=== PATIENT | female | born 1960 ===

== ENCOUNTER 2025-04-15 13:22 | Outpatient (AMB) | payer OTHER, SELFPAY ==
--- NOTE | 2025-04-15 13:24 | MHC.OFFVIS ---
Intake Visit Reasons: 6m migraine Allergies Penicillins Allergy (Unknown, Verified 04/15/25 13:28) Unknown Sulfa (Sulfonamide Antibiotics) Allergy (Unknown, Verified 04/15/25 13:28) Unknown sulfamethoxazole (From Bactrim) Allergy (Unknown, Verified 04/15/25 13:28) Unknown trimethoprim (From Bactrim) Allergy (Unknown, Verified 04/15/25 13:28) Unknown Medication List - Last Reconciled 04/15/25 by Brenda Steinberg CNP albuterol sulfate 90 mcg/actuation (Ventolin HFA) inhalation calcium carbonate-vitamin D3 600 mg-20 mcg (800 unit) tabs PO cholecalciferol (vitamin D3) 25 mcg PO DAILY gabapentin 100 mg PO TID hydroxychloroquine 200 mg PO DAILY ondansetron HCl mg PO rizatriptan take 1 tab at onset of headache; if no relief may repeat 1 tab after at least 4 hrs; max = 2 tabs/24 hr PO 30 days sumatriptan succinate mg subcut HPI Comments Details: She was doing okay. Migraines were stable, happening about 3x/month. Triggers include?alcohol, some barbecue sauce, sulfa, and stress. Rizatriptan as needed helps most of the time. If no relief with rizatriptan, will use sumatriptan injection which helps. Sleep was okay. Stress was okay. She started smoking cigarettes about 4-6/day after quitting for about 6 years. She was also smoking marijuana daily to help with pain. 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 Pain in joints in wrist and fingers. Gets vomiting, photophobia and sonophobia if not treated with Excedrin, Zomig or Sumatriptan inj. Tension type headaches relieved by Flexeril. Stopped propranolol.?Diagnosed as Lupus and immune compromised treated by Dr. Simon. She has a history of migraines since the 1980s but had been under control. She describes a throbbing bifrontal pain with nausea, vomiting, photophobia and sonophobia. She has chronic pain from FM and joint disease from Lupus. She has chronic pain syndrome related to back pain and shoulder pain, tailbone pain and hip pain . [facility] Medical History (Updated 04/15/25 @ 13:30 by Brenda Steinberg CNP) History of substance use disorder Diverticulitis Shingles Endometriosis Chronic pain syndrome Migraine Lumbar radiculopathy Fibromyalgia Lupus (systemic lupus erythematosus) Carpal tunnel syndrome Surgical History (Updated 04/15/25 @ 13:30 by Brenda Steinberg CNP) S/P carpal tunnel release Review of Systems Const Denies chills, Denies daytime sleepiness, Denies difficulty sleeping, Denies fatigue, Denies fever(s), Denies frequent falls, Reports headache(s), Denies increased appetite, Denies poor appetite, Denies snoring, Denies weakness, Denies weight gain and Denies weight loss Eyes Denies loss of vision ENT Denies vertigo, Denies dizziness, Reports headache(s) and Reports neck pain Card Denies chest pain at rest, Denies chest pain with activity, Denies syncope, Denies leg edema, Denies palpitations, Denies dyspnea and Denies dyspnea on exertion Resp Denies cough, Denies dyspnea, Denies dyspnea on exertion and Denies snoring GI Denies abdominal pain, Denies constipation, Denies heartburn, Denies diarrhea and Denies nausea Denies urinary frequency, Denies urinary incontinence and Denies urinary urgency Musc Denies abnormal gait, Reports back pain, Reports myalgias, Reports arthralgias, Reports neck pain, Denies numbness and Denies tingling Neuro Denies abnormal gait, Denies vertigo, Denies dizziness, Denies syncope, Denies frequent falls, Reports headache(s), Denies lack of coordination, Denies loss of vision, Denies memory loss, Denies numbness, Denies Other visual disturbances, Denies restless legs, Denies seizure-like activity, Denies tingling, Denies paresthesias, Denies tremor(s) and Denies weakness Psych Denies anxiety, Denies depression, Denies auditory hallucinations, Denies memory loss and Denies visual hallucinations Endo Denies fatigue and Denies palpitations Physical Exam Const Other: General Appearance:? normal, in no acute distress. Heart:? S1, S2 normal, no murmurs. Lungs:? clear anteriorly and posteriorly. Musculoskeletal:? normal. Extremities:? no edema. Psych:? alert, oriented, cognitive function intact, cooperative with exam. Neuro Other: Abnormal Neurological Findings:?none.? Mental Status: alert and oriented X 3. Normal attention, orientation, memory, and affect. Cranial Nerves: Pupils are equal, round, and reactive to light. External ocular muscles are intact. Visual stevens are full, no ptosis. Face is symmetrical, no facial weakness or droop. Facial sensations are normal. Tongue protrudes in midline. Palate elevates symmetrically. Shoulder shrugging is normal Motor Examination: Normal muscle tone, bulk and strength. No atrophy or fasciculations. No drift of the extended upper extremities. DTR 2+. Plantars are flexor. Sensory Exam: Normal light touch, temperature, pinprick, vibration, and joint-position sensations. Rhomberg sign is absent. Coordination: No ataxia. No titubation. Gait Exam: Within normal limits. Cerebellar Signs: [id number] is okay. Extrapyramidal System: No tremor, rigidity with normal facial expressions. No bradykinesia. No bradyphrenia. Normal arm swing and posture. No propulsion or retropulsion. Speech: Normal. Results Reviewed Results Reviewed: CT brain 08/23/13 WNL NCV/EMG UE 12/28/17 Normal motor and sensory nerve conduction velocities in the upper extremities. Normal EMG in the left C5-T1 innervated muscles. Assessment & Plan Assessment & Plan (1) Migraine: Code(s): G43.909 - Migraine, unspecified, not intractable, without status migrainosus Category: Medical Qualifiers: Migraine type: unspecified Status migrainosus presence: without status migrainosus Intractability: not intractable Qualified Code(s): G43.909 - Migraine, unspecified, not intractable, without status migrainosus Plan: Continue rizatriptan 10mg 1 tablet as needed for migraine. Continue sumatriptan auto-injector 6mg/0.5mL 0.5mL subcutaneous as needed for migraine #4 for 30 days. Continue ondansetron 4mg 1 tablet as needed for nausea/vomiting #10 for 30 days. Follow up in 6 months or sooner as needed. (2) Fibromyalgia: Code(s): M79.7 - Fibromyalgia Category: Medical Plan Meds tried: topiramate, propranolol Medications: New rizatriptan take 1 tab at onset of headache; if no relief may repeat 1 tab after at least 4 hrs; max = 2 tabs/24 hr PO 10 tabs 5RF 30 days Coding Level of Care Code Est Pt Level 4 (92454) Diagnoses Migraine without status migrainosus, not intractable, unspecified migraine type G43.909 Migraine type: unspecified Status migrainosus presence: without status migrainosus Intractability: not intractable Fibromyalgia M79.7
--- OUTSIDE RECORDS SUMMARY | 2025-04-15 19:21 | XMS_ITS | Clinical Summary ---
Author Organization [address] [facility] Address [address] [place], [place] [address] [address] Phone Care Team Providers Care Test Clerk Name Role Phone Tyrell Ware MD Primary Care Pr ovider Allergies Active Allergy Reactions Criticality Noted Date Comments Acetaminophen GI intolerance Medium 07/28/2017 Milk GI intolerance 06/06/2020 Milk/ cheese- Gastritis Nsaids (Non-Steroidal Anti-Inflammatory Drug) Other 08/21/2009 Stomach Pain Penicillins Itching 08/21/2009 Soy Rash 06/06/2020 Rash/ pimples Stevioside Itching 06/06/2020 Stevia- itching Sulfa (Sulfonamide Antibiotics) Itching 08/21/2009 Sulfamethoxazole-Trimethop rim Itching 08/21/2009 Medications albuterol HFA (PROAIR HFA ; PROVENTIL HFA ; VENTOLIN HFA) 90 mcg/actuation inhaler Inhale 2 Puffs into the lungs every 4 hours as needed for Cough or Wheezing. 06/04/19 24 Active gabapentin (NEURONTIN) 100 mg capsule Take 1 Capsule by mouth daily. Active hydroxychloroqu ine (PLAQUENIL) 200 mg tablet Take 200 mg by mouth daily. 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 May repeat in 2 hours if needed Active SUMATRIPTAN, BULK, MISC SUMATRIPTAN SUCCINATE IJ Inject as directed. Active cholecalciferol (VITAMIN D-3) 125 mcg (5,000 unit) capsule Take 1 capsule (5,000 Units total) by mouth 1 (one) time each day. 05/19/19 25 Active pantoprazole (PROTONIX) 40 mg EC tabletIndicatio ns:Left lower quadrant abdominal pain,Adenomatou s polyp of colon, unspecified part of colon,Gastroeso phageal reflux disease, unspecified whether esophagitis present Take 1 tablet (40 mg total) by mouth 2 (two) times a day. Do not crush, chew, or split. 60 each 11 06/05/19 25 026 Active ondansetron (ZOFRAN) 4 mg tabletIndicatio ns:Chronic migraine without aura without status migrainosus, not intractable Take 1 tablet (4 mg total) by mouth 1 (one) time each day if needed for nausea or vomiting. 06/11/19 25 Active UNABLE TO FIND Med Name: Ryze mushroom coffee and SeroVital supplement Active Active Problems Problem Noted Date Diagnosed Date Elevated LDL cholesterol level 06/21/2024 Overview (06/21/2024): Calculated ASCVD risk is 4.1% Fibroid, uterine 06/11/2024 Overview (06/11/2024): Dr Cowan Gastroesophageal reflux disease without esophagi tis 06/11/2024 Assessment & Plan (06/11/2024 12:06 PM EST): Continue GI follow-up. Recently completed colonoscopy/EGD on 06/07/2024. Results are pending Continue pantoprazole 40 mg Carpal tunnel syndrome 04/27/2024 COPD (chronic obstructive pulmonary disease) Assessment & Plan (06/11/2024 12:06 PM EST): Symptoms are well-controlled. Not using any inhalers at this time. Reports resolution of symptoms when she quit smoking in 2019 Depression 04/27/2024 Fibromyalgia 04/27/2024 Assessment & Plan (06/11/2024 12:06 PM EST): Continue gabapentin as needed Lupus (systemic lupus erythematosus) 04/27/2024 Assessment & Plan (06/11/2024 12:06 PM EST): Continue hydroxychloroquine 200 mg daily. Continue follow-up with [facility] rheumatology Migraine 04/27/2024 Assessment & Plan (06/11/2024 12:06 PM EST): Stable. Continue follow-up with . continue zofran prn and rizatriptan prn/sumatriptan Injection PRN For severe migraine headaches. 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) 07/10/2018 06/11/2024 Immunizations Immunization Administration Dates Next Due Tdap Tetanus diptheria acell ular pertussis (Boostrix; Adacel) 7yo and older 09/17/2020 Surgical History Surgery Date Site/Laterality Comments TONSILLECTOMY PROCEDURE: HISTORICAL TONSILLECTOMY; COMMENT: as child APPENDECTOMY PROCEDURE: OK APPENDECTOMY TUBAL LIGATION PROCEDURE: HISTORICAL TUBAL LIGATION; COMMENT: 2000 CARPAL TUNNEL RELEASE Left PROCEDURE: HISTORICAL CARPAL TUNNEL REL; COMMENT: 2008 WRIST MASS EXCISION PROCEDURE: OK EXCISION GANGLION WRIST DORSAL/VOLAR PRIMARY Medical History Medical History Date Comments Tumors of body of uterus, delivered DX:Tumors of body of uterus, delivered Fibromyalgia DX:Fibromyalgia Depression DX:Depression COPD (chronic obstructive pu lmonary disease) ([facility] V24, [facility] V28) DX:COPD (chronic o bstructive pulmonary disease) ([facility]) Lupus DX:Lupus Migraine DX:Migraine Carpal tunnel syndrome DX:Carpal tunnel syndrome Pneumothorax DX:Pneumothorax; COMMENT: s/p fall, in the s Lupus erythematosus 07/10/2018 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) ([facility] V24, [facility] V28) 07/10/2018 Family History Medical History Relation Name Comments Other: Pancreatic cancer Father age 80 No Known Problems Maternal Grandfather No Known Problems Maternal Grandmother Other: Multiple sclerosis, t hroat cancer, hypertension, hyperlipidemia Mother Breast cancer Mother's Sister 2 Other: Pancreatic cancer Paternal Grandmother age 80 Relation Name Status Comments Father Maternal Grandfather Maternal Grandmother Mother Mother's Sister 1 Alive Mother's Sister 2 Alive Paternal Grandmother Social History Tobacco Use Types Packs/Day Years Used Date Smoking Tobacco: Former Cigarettes 1 Q uit: 05/29/2018 Smokeless Tobacco: Never Tobacco Cessation:Counseling Given: Not Answered Alcohol Use Standard Drinks/Week Comments No 0 (1 standard drink = 0.6 oz pur e alcohol) Housing Instability Answer Date Recorde d Are you worried that in the next 2 months you may not have stable housing? No 06/11/2024 Food Access & Nutrition Answer Date Rec orded Do you have access to a vari ety of food including fruits and vegetables? No 06/11/2024 Health Literacy Answer Date Recorded How often do you need to hav e someone help you when you read instructions, pamphlets, or other written material from your doctor or pharmacy? Never 06/11/2024 Caregiver: How often do you need to have someone help you when you read instructions, pamphlets, or other written material from your doctor or pharmacy? Not on file 06/11/2024 Financial Risk Answer Date Recorded How hard is it for you to pa y for the very basics like food, housing, medical care, and air conditioning / heating? Not very hard 06/11/2024 Transportation Answer Date Recorded Has the lack of transportati on kept you from meetings, work, or from getting things needed for daily living? No Has the lack of transportati on kept you from medical appointments or from getting medications? No 06/11/2024 Social Isolation Answer Date Recorded How often do you feel lonely or isolated from th ose around you? Never 06/11/2024 Food Risk Answer Date Recorded Within the past 12 months we worried whether our food would run out before we got money to buy more. Never true 06/11/2024 Within the past 12 months th e food we bought just didn't last and we didn't have money to get more. Never true 06/11/2024 Dependent Care Answer Date Recorded Do you need help finding or paying for care for your loved ones. For example, children counselor or elderly care for an older adult? No 06/11/2024 Education Answer Date Recorded Do you think completing more education or training, like finishing a GED, going to college, or learning a trade, would be helpful for you? No 06/11/2024 Employment and Income Answer Date Recor ded During the last four weeks, have you been actively looking for work? No 06/11/2024 Living Situation Answer Date Recorded What is your living situation? Unrecognized valu e 06/11/2024 Comments No Sex and Gender Information Value Date Recorded Sex Assigned at Female 05/31/2024 5:43 PM EST Legal Sex Female 10:26 PM EST Gender Identity Female 05/31/2024 5:43 PM EST Sexual Orientation Straight 05/31/2024 5: 43 PM EST Last Filed Vital Signs Vital Sign Reading Time Taken Comments Blood Pressure 120/90 09/07/2024 1:16 PM EDT Pulse 61 07/12/2024 2:29 PM EDT Temperature 36.8 C (98.3 F) 07/12/2024 2:29 PM EDT Respiratory Rate 12 07/12/2024 2:29 PM EDT Oxygen Saturation 95% 07/12/2024 2:29 PM EDT Inhaled Oxygen Concentration - - Weight 47.2 kg (104 lb) 09/07/2024 1:16 PM EDT Height 154.9 cm (5' 1 ) 09/07/2024 1:16 PM EDT Body Mass Index 19.65 09/07/2024 1:16 PM EDT Plan of Treatment Health Maintenance Due Date Last Done Comments HIV Screening 04/10/2022 Influenza Vaccine (#1) 2024 02/28/2014 Social Influencers of Health Screening 06/11/2025 06/11/2024 Breast Cancer Screening 06/28/2026 06/28/2024 Cervical Cancer Screening: HPV 10/25/2028 10/26/2023 Cholesterol Screening (Lipid Panel) 06/18/2029 06/18/2024, 10/11/2022 Colorectal Cancer Screening: Colonoscopy 06/08/2034 06/08/2024, 06/08/2019, 06/08/2019 Hepatitis C Screening Completed 10/23/2019 DTaP,Tdap,and Td Vaccines Discontinued 09/17/2020 Depression Screening Completed 06/11/2024 Lung Cancer Screening (Low Dose CT) Discontinued 12/17/2024, 12/20/2023, 11/29/2022, Additional history exists COVID-19 Vaccine Discontinued HIB Vaccines Aged Out No longer eligi ble based on patient's age to complete this topic HPV Vaccines Aged Out No longer eligi ble based on patient's age to complete this topic Hepatitis A Vaccines Aged Out No long er eligible based on patient's age to complete this topic Hepatitis B Vaccines Aged Out No long er eligible based on patient's age to complete this topic IPV Vaccines Aged Out No longer eligi ble based on patient's age to complete this topic MMR Vaccines Aged Out No longer eligi ble based on patient's age to complete this topic Meningococcal ACWY Vaccine Aged Out N o longer eligible based on patient's age to complete this topic Meningococcal B Vaccine Aged Out No l onger eligible based on patient's age to complete this topic Pneumococcal Vaccine: 50+ Years Discontinued RSV Immunization Adult Patients Discontinued RSV Immunization Patients Under 20 months Aged Out No longer eligible based on patient's age to complete this topic Varicella Vaccines Aged Out No longer eligible based on patient's age to complete this topic Zoster Vaccines Discontinued Procedures Procedure Name Priority Date/Time Associated Diagnosis Comments CT LUNG SCREENING Routine 12/17/2024 2:0 3 PM EDT Personal history of nicotine dependence Encounter for screening for malignant neoplasm of respiratory organs MG MAMMO DIGITAL SCREENING W TY BILAT Routine 06/28/2024 10:49 AM EST Encounter for screening mammogram for malignant neoplasm of breast LIPID PANEL WITH REFLEX TO DIRECT LDL Routine 06/18/2024 11:56 AM EST Screening for lipid disorders Atherosclerotic vascular disease EXTERNAL COLONOSCOPY REPORT Routine 06/08/2024 2:25 PM EST HM HPV Routine 10/26/2023 HM HEPATITIS C SCREENING Routine 10/23/2019 from Last 3 Months or Most Recently Relevant to Health Maintenance Results * CT Lung Screening (12/17/2024 2:03 PM EDT) Anatomical Region Laterality Modality Chest Computed Tomogra phy 12/21/2024 7:05 AM EDT Impressions 12/21/2024 7:16 AM EDT No suspicious mass or nodule. No suspicious interval change Significant underlying emphysema. LUNG RADS: Lung-RADS 2: BENIGN S Modifier (Significant or Potentially Significant Findings): None present No suspicious nonpulmonary findings. RECOMMENDATIONS: [address] month screening low dose CT -------- FINAL REPORT -------- Dictated By: Dylan Torres Dictated Date: 12/21/2024 07:05 ET Assigned Physician: Dylan Torres Reviewed and Electronically Signed By: Dylan Torres Signed Date: 12/21/2024 07:16 ET Workstation ID: [id number] Transcribed By: Self Edit Transcribed Date: 12/21/2024 07:05 ET Narrative 12/21/2024 7:16 AM EDT EXAMINATION: CT CHEST WITHOUT CONTRAST LUNG CANCER SCREENING, LOW DOSE CLINICAL INFORMATION: Lung cancer screening. Current smoker. COMPARISON: Portions of previous 12/16/23 TECHNIQUE: Multidetector CT. Examination of the chest. Examination of the chest without IV contrast. Reformatting in the coronal and sagittal planes. Device: [employer] VCT DLP: 116 mGy-cm CTDI: 3.22 Dose optimization was performed including the use of low-dose iterative reconstruction technique with automatic exposure control based on patient size. Type of contrast: None Volume of IV contrast: None Volume of contrast discarded: 0 mL FINDINGS: LUNG: No abnormality of the trachea or mainstem bronchi. LUNG NODULES: There are no suspicious nodules or masses. There are a few unchanged micronodules. OTHER PULMONARY: There is severe underlying centrilobular emphysema. Lung volumes are large. There is no honeycomb formation. There are no significant interstitial lung abnormalities. MEDIASTINUM: There are no enlarged mediastinal or hilar lymph nodes. No suspicious abnormalities of the esophagus. Unchanged mild nonspecific stranding in the prevascular mediastinal fat. CARDIAC: The heart is not enlarged. No pericardial fluid or thickening No coronary calcifications demonstrated. VASCULAR: The ascending aorta measures 3.2 cm. The central pulmonary arteries are normal caliber. The attenuation within the cardiac chambers and vessels suggests there may be some anemia. PLEURA: There is no pleural fluid or pneumothorax AXILLA/CHEST WALL: There are no enlarged axillary lymph nodes. No chest wall mass demonstrated. VISUALIZED UPPER ABDOMEN: No suspicious abnormality on limited assessment of the visualized upper abdomen. Unchanged circumscribed low density lesion in left lobe liver could represent a cyst. MUSCULOSKELETAL: No suspicious focal bony lesion demonstrated. Procedure Note Dylan Torres MD - 12/21/2024 EXAMINATION: CT CHEST WITHOUT CONTRAST LUNG CANCER SCREENING, LOW DOSE CLINICAL INFORMATION: Lung cancer screening. Current smoker. COMPARISON: Portions of previous 12/16/23 TECHNIQUE: Multidetector CT. Examination of the chest. Examination of the chest without IV contrast. Reformatting in the coronal and sagittal planes. Device: [employer] VCT DLP: 116 mGy-cm CTDI: 3.22 Dose optimization was performed including the use of low-dose iterativereconstruction technique with automatic exposure control based on patientsize. Type of contrast: None Volume of IV contrast: None Volume of contrast discarded: 0 mL FINDINGS: LUNG: No abnormality of the trachea or mainstem bronchi. LUNG NODULES: There are no suspicious nodules or masses. There are a few unchanged micronodules. OTHER PULMONARY: There is severe underlying centrilobular emphysema.Lung volumes are large. There is no honeycomb formation. There are nosignificant interstitial lung abnormalities. MEDIASTINUM: There are no enlarged mediastinal or hilar lymph nodes. Nosuspicious abnormalities of the esophagus. Unchanged mild nonspecificstranding in the prevascular mediastinal fat. CARDIAC: The heart is not enlarged. No pericardial fluid or thickening No coronary calcifications demonstrated. VASCULAR: The ascending aorta measures 3.2 cm. The central pulmonaryarteries are normal caliber. The attenuation within the cardiac chambersand vessels suggests there may be some anemia. PLEURA: There is no pleural fluid or pneumothorax AXILLA/CHEST WALL: There are no enlarged axillary lymph nodes. No chestwall mass demonstrated. VISUALIZED UPPER ABDOMEN: No suspicious abnormality on limited assessmentof the visualized upper abdomen. Unchanged circumscribed low densitylesion in left lobe liver could represent a cyst. MUSCULOSKELETAL: No suspicious focal bony lesion demonstrated. IMPRESSION: No suspicious mass or nodule. No suspicious interval change Significant underlying emphysema. LUNG RADS: Lung-RADS 2: BENIGN S Modifier (Significant or Potentially Significant Findings): Nonepresent No suspicious nonpulmonary findings. RECOMMENDATIONS: [address] screening low dose [address] -------- FINAL REPORT -------- Dictated By: Dylan Torres Dictated Date: 12/21/2024 07:05 ET Assigned Physician: Dylan Torres Reviewed and Electronically Signed By: Dylan Torres Signed Date: 12/21/2024 07:16 ET Workstation ID: [id number] Transcribed By: Self Edit Transcribed Date: 12/21/2024 07:05 ET us Azul Mina MD IMG CT PROCEDURES Final Result * (ABNORMAL) MG Mammo Digital Screening w Ty bilat (06/28/2024 10:49 AM EST) Anatomical Region Laterality Modality Breast Bilateral Mammography 06/28/2024 4:13 PM EST Impressions 06/28/2024 4:22 PM EST Circumscribed oval left breast mass. Recommend targeted diagnostic left breast ultrasound. Departmental staff will assist with scheduling. ASSESSMENT: BI-RADS 0: INCOMPLETE - need additional imaging evaluation and/or prior mammograms for comparison RECOMMENDATION(S): 1: Ultrasound follow-up LEFT [facility]amm[facility] location[facility] [address], [address] -------- FINAL REPORT -------- Dictated By: Dylan Torres Dictated Date: 06/28/2024 16:13 ET Assigned Physician: Dylan Torres Reviewed and Electronically Signed By: Dylan Torres Signed Date: 06/28/2024 16:22 ET Workstation ID: [id number] Transcribed By: Self Edit Transcribed Date: 06/28/2024 16:13 ET Narrative 06/28/2024 4:22 PM EST EXAM: SCREENING MAMMOGRAPHY, BILATERAL HISTORY: SCREENING. Maternal aunt with history of breast cancer. COMPARISON: 11/15/2014 TECHNIQUE: Synthesized CC and MLO projections of each breast. Tomosynthesis of each breast in the CC and MLO projections. ADDITIONAL IMAGING: None Computer-aided detection was employed with the [employer] L[employer] SmartLight AI 3-D. TISSUE DENSITY: There are scattered areas of fibroglandular density. (BI-RADS category B) FINDINGS: RIGHT BREAST: No suspicious mass. No suspicious calcification. No distortion. No additional suspicious right breast findings LEFT BREAST: No suspicious calcification. No distortion. Sharply circumscribed 0.7 cm equal density oval mass in the 8 o'clock position 3 cm from the left nipple appears unchanged. Procedure Note Dylan Torres MD - 06/28/2024 EXAM: SCREENING MAMMOGRAPHY, BILATERAL HISTORY: SCREENING. Maternal aunt with history of breast cancer. COMPARISON: 11/15/2014 TECHNIQUE: Synthesized CC and MLO projections of each breast.Tomosynthesis of each breast in the CC and MLO projections. ADDITIONAL IMAGING: None Computer-aided detection was employed with the [employer] AI 3-D. TISSUE DENSITY: There are scattered areas of fibroglandular density.(BI-RADS category B) FINDINGS: RIGHT BREAST: No suspicious mass. No suspicious calcification. No distortion. Noadditional suspicious right breast findings LEFT BREAST: No suspicious calcification. No distortion. Sharply circumscribed 0.7 cm equal density oval mass in the 8 o'clockposition 3 cm from the left nipple appears unchanged. IMPRESSION: Circumscribed oval left breast mass. Recommend targeted diagnostic left breast ultrasound. Departmental staff will assist with scheduling. ASSESSMENT: BI-RADS 0: INCOMPLETE - need additional imaging evaluation and/or priormammograms for comparison RECOMMENDATION(S): 1: Ultrasound follow-up LEFT Mammography location: [facility] [address], [address] -------- FINAL REPORT -------- Dictated By: Dylan Torres Dictated Date: 06/28/2024 16:13 ET Assigned Physician: Dylan Torres Reviewed and Electronically Signed By: Dylan Torres Signed Date: 06/28/2024 16:22 ET Workstation ID: [id number] Transcribed By: Self Edit Transcribed Date: 06/28/2024 16:13 ET Tyrell Ware MD [facility] BI PROCEDURE S Final Result * (ABNORMAL) Lipid panel with reflex to direct LDL (06/18/2024 11:56 AM EST) Cholesterol 198 0 - 200 mg/dL LAB CHEMISTRY METHOD 06/18/2024 2:35 PM EST [facility] Triglycerides 85 0 - 150 mg/dL LAB CHEMISTRY METHOD 06/18/2024 2:35 PM EST [facility] HDL 71 >=40 mg/dL LAB CHEMISTRY METHOD 06/18/2024 2:35 PM EST [facility] LDL Calculated 110(H) 0 - 100 mg/dL LAB CHEMISTRY METHOD 06/18/2024 2:35 PM EST [facility] VLDL Cholesterol Jc 17 mg/dL LAB CHEMISTRY METHOD 06/18/2024 2:35 PM EST [facility] Non HDL Chol. (LDL+VLDL) 127 <145 mg/dL LAB CHEMISTRY METHOD 06/18/2024 2:35 PM EST [facility] Chol/HDL Ratio 2.8 0.0 - 4.4 LAB CHEMISTRY METHOD 06/18/2024 2:35 PM EST [facility] Blood Venous blood specimen / Unknown Venipuncture / Unknown 06/18/2024 11:56 AM EST 06/18/2024 11:56 AM EST Tyrell Ware MD LAB BLOOD ORDERA BLES Final Result [facility] [address] [place] [address], [place] [phone] * External Colonoscopy Report (06/08/2024 2:25 PM EST) Anatomical Region Laterality Modality Endoscopy Historical Provider GI~PROCEDURE ORDERABLES F inal Result * Cervical Cancer Screening: HPV (10/26/2023) Cervical Cancer Screening: HPV Abstracted, Negative Historical Provider HEALTH MAINTENANCE Final Result * Hepatitis C Screening (10/23/2019) Hepatitis C Screening Abstracted Historical Provider HEALTH MAINTENANCE Final Result from Last 3 Months or Most Recently Relevant to Health Maintenance Insurance [facility] Care Teams Test Clerk Relationship Specialty Start Date End Date Tyrell Ware MD [address] [place] [id number] PCP - General 10/11/22
--- OUTSIDE RECORDS SUMMARY | 2025-04-15 19:21 | XMS_ITS ---
Author Name [facility] Organization Unknown Care Team Organization Name Specialty Phone Email Start Date End Da te [facility] STEPHANIE BEAVERS [email or web address] 11/04/2022 4 [facility] Garth Li Primary Care 09/06/202212/18 4 [facility] Anuja Castillo Primary Care 03/09/2022 4
== END 2025-04-15 13:54 | disposition home or self-care (01) ==
LOC: HO.HSM 13:23
PROVIDERS: PCP Internal Medicine; Referring Provider Internal Medicine; Visit Provider Registered Nurse
DX: G43.909 Migraine, unspecified, not intractable, without status migrainosus (principal); M79.7 Fibromyalgia
CPT/HCPCS: 99214

== ENCOUNTER → 2025-04-15 13:22 | Outpatient (BNVA) | payer OTHER, SELFPAY | PROVIDERS: PCP Internal Medicine; Referring Provider Internal Medicine; Visit Provider Registered Nurse | DX: G43.909 Migraine, unspecified, not intractable, without status migrainosus (principal); G89.29 Other chronic pain; M79.7 Fibromyalgia; Z79.899 Other long term (current) drug therapy | CPT/HCPCS: 99212 ==